=== PATIENT | female | born 1940 | race Caucasian/White ===

== ENCOUNTER 2019-11-10 09:45 | Outpatient (CLI) | payer MEDICARE, BC, SELFPAY ==
--- NOTE | ~2019-11-10 | MM_ITS ---
EXAMINATION: MM screening jeana BI w priscila HISTORY: Screening mammogram TECHNIQUE: Craniocaudal and mediolateral oblique 3-D tomosynthesis images were obtained and synthetic 2-D images were generated. CAD analysis was submitted and interpreted. COMPARISON: 08/10/2018, 08/12/2017, 07/13/2016 bilateral digital screening mammogram examinations BREAST PARENCHYMAL COMPOSITION: There are scattered areas of fibroglandular density. FINDINGS: There is no evidence of suspicious mass, calcification, or architectural distortion to sugg est malignancy in either breast. There has been no suspicious interval change. IMPRESSION: 1. No mammographic evidence of malignancy. 2. Recommend routine screening mammography in one year. BI-RADS Category 1: Negative Reviewed, dictated and finalized at location A.
== END 2019-11-10 09:46 | disposition home or self-care (01) ==
PROVIDERS: PCP Nurse Practitioner Adult Health; Visit Provider Nurse Practitioner Adult Health
DX: Z12.31 Encounter for screening mammogram for malignant neoplasm of breast (principal)
CPT/HCPCS: 77063; 77067

== ENCOUNTER 2021-03-10 08:34 | Outpatient (CLI) | payer MEDICARE, BC, SELFPAY ==
--- NOTE | ~2021-03-10 | MM_ITS ---
EXAMINATION: MM screening jeana BI w priscila HISTORY: Screening mammogram TECHNIQUE: Craniocaudal and mediolateral oblique 3-D tomosynthesis images were obtained and synthetic 2-D images were generated. CAD analysis was submitted and interpreted. COMPARISON: 11/10/2019, 08/10/2018, 07/31/2017 bilateral digital screening mammogram examinations BREAST PARENCHYMAL COMPOSITION: There are scattered areas of fibroglandular density. FINDINGS: There is no evidence of suspicious mass, calcification, or architectural distortion to sugg est malignancy in either breast. There has been no suspicious interval change. IMPRESSION: 1. No mammographic evidence of malignancy. 2. Recommend routine screening mammography in one year. BI-RADS Category 1: Negative Reviewed, dictated and finalized at location A.
== END 2021-03-10 08:35 | disposition home or self-care (01) ==
LOC: ANHIMG 08:38
PROVIDERS: PCP Nurse Practitioner Adult Health; Visit Provider Nurse Practitioner Adult Health
DX: Z12.31 Encounter for screening mammogram for malignant neoplasm of breast (principal)
CPT/HCPCS: 77063; 77067

== ENCOUNTER 2023-02-10 08:00 | Outpatient (CLI) | payer MEDICARE, BC, SELFPAY ==
--- NOTE | 2023-02-10 08:26 | ECG_ITS ---
Measurements Intervals [place] Rate: 79 P: 65 CT: 177 QRS: 93 QRSD: 141 T: -12 QT: 395 QTc: 453 Interpretive Statements SINUS RHYTHM RIGHT BUNDLE BRANCH BLOCK [120+ ms QRS DURATION, UPRIGHT V1, 40+ ms S IN I/aVL/V4/V5/V6] ABNORMAL ECG NO PREVIOUS ECG AVAILABLE FOR COMPARISON Electronically Signed On 02-10-2023 12:05:14 CDT by Beltran Ruggiero M.D.
[2023-02-10 09:31] LABS: Anion Gap 5 mmol/L (8-16); Blood Urea Nitrogen 36 mg/dL (7-17); Calcium 9.3 mg/dL (8.4-10.2); Carbon Dioxide 29 mmol/L (22-30); Chloride 101 mmol/L (98-107); Estimated Glomerular Filt Rate 53; Glucose 106 mg/dL (65-110); Potassium 3.7 mmol/L (3.4-5.0); Sodium 135 mmol/L (137-145)
== END 2023-02-10 08:01 | disposition home or self-care (01) ==
PROVIDERS: PCP Nurse Practitioner Adult Health; Visit Provider Orthopaedic Surgery
DX: Z01.818 Encounter for other preprocedural examination (principal); I45.10 Unspecified right bundle-branch block
CPT/HCPCS: 36415; 80048; 93005

== ENCOUNTER 2024-08-23 10:22 | Emergency (ER) | payer MEDICARE, BC, SELFPAY ==
[2024-08-23] VITALS (38 sets, daily range): BP systolic 130–178; BP diastolic 57–80; PULSE 76–102; RESP 14–32; TEMP 36.7–37.2; O2SAT 88–100
--- NOTE | ~2024-08-23 | CT_ITS ---
EXAMINATION: CT brain wo con DATE: 08/23/2024 14:26 INDICATION: One week of headache TECHNIQUE: Computed tomography (CT) of the head was performed without intravenous contrast. Sagittal and coronal reconstructions were performed. The mA was adjusted according to patient size. Iterative reconstruction technique was employed. The dose-length product was 605.33 mGy-cm. COMPARISON: None FINDINGS: No acute intracranial hemorrhage, acute infarction or abnormal extra axial fluid collection. There is mild scattered white matter hypoattenuation consistent with chronic small vessel ischemic disease. S ymmetric prominence of the sulci consistent with mild age-appropriate diffuse cerebral volume loss. V entricles are normal and symmetric. No mass/mass effect. Small bilateral pleural effusions. The orbit s and paranasal sinuses are normal. Intracranial calcified cerebral atherosclerosis is noted. IMPRESSION: 1. Normal aging brain. No acute intracranial process. Reviewed, dictated and finalized at location B. RN
--- OUTSIDE RECORDS SUMMARY | 2024-08-23 11:40 | XMS_ITS | Continuity of Care Document ---
Author Organization [facility] Address [address] [place] [address] [address] [place] [address] Phone Care Team Providers Care Patient Care Director Name Role Phone Hutchison OD, Jose Daniel Unavailable Unavailable Procedures Procedure Date Eye Exam & Treatment No Script Refraction Eye Exam & Treatment Advance Directives Directive Yes / No Effective Date File Name No Information Encounters Encounter Description Practice Location Reason(s) For Visit Diagnoses Date Provider Providers Copied on Encounter [facility], [address] [place] [address] [address], [place], [place], [id number], tel:[phone] [facility] No Information 1-200 9 Hutchison OD Jose Daniel. [address] , [address], [place], [place], [facility], [place]. tel:[phone] [facility], [address] [place] [address] [address], [place], [place], [id number], tel:[phone] [facility] No Information 4-200 7 Hutchison OD Jose Daniel. [address] , [address], [place], [address], [place]. tel:[phone] Family History Family Member Type Diagnosis Age At Onset No Information Payers Payer name Insurance type Covered republican ID Authoriza tion(s) [place] [id number] BCBS [facility] PPO BL [id number] Social History Type Description Quantity Date Captured Comments Sex Female Smoking Status No Information Chief Complaint And Reason For Visit No Information Reason For Referral Reason For Referral No Information History Of Present Illness Encounter Date Complaint History Of Prese nt Illness No Information Functional Status Date Functional Assessmen t No Information Instructions Date Instruction Additional Infor mation No Information Assessments Type Assessment Date No Information Patient Care Teams Name Effective Dates (start - stop) Status Members No Information
--- OUTSIDE RECORDS SUMMARY | 2024-08-23 11:40 | XMS_ITS | Clinical Summary ---
Author Organization [facility] Address [address] [place] [address] Care Team Providers Care Molded Goods Embossing Press Operator Name Role Phone None, Provider Primary Care Provider Unavaila ble Social History Tobacco Use Types Packs/Day Years Used Date Smoking Tobacco: Never Assessed Comments Unknown Sex and Gender Information Value Date Recorded Sex Assigned at Not on file Legal Sex Female 6:47 PM CDT Gender Identity Not on file Sexual Orientation Not on file Plan of Treatment Health Maintenance Due Date Last Done Comments DTaP, Tdap and Td Vaccines ( 1 - Tdap) 1958 Zoster Vaccines (1 of 2) 1989 Pneumococcal Vaccine: 65+ Ye ars (1 of 1 - PCV) 01/15/2004 RSV Immunization or 60+ Years (1 - 1-dose 75+ series) 2014 COVID-19 Vaccine ( - 2023-2 5 season) 2024 Influenza Adult (#1) 2024 Meningococcal B Vaccine Aged Out No l onger eligible based on patient's age to complete this topic Meningococcal Vaccine Aged Out No rory alicia eligible based on patient's age to complete this topic RSV Immunizations Under 20 Months Aged Out No longer eligible based on patient's age to complete this topic Care Teams Molded Goods Embossing Press Operator Relationship Specialty Start Date End Date None, Provider, PCP - General 04/28/18
--- NOTE | 2024-08-23 13:50 | ECG_ITS ---
Test Date: 2024-08-23 13:52:11 Measurements Intervals [place] Rate: 90 P: 65 [place]: 180 QRS: 101 QRSD: 117 T: 14 QT: 369 QTc: 453 Interpretive Statements SINUS RHYTHM RIGHT AXIS DEVIATION [QRS AXIS > 100] RIGHT BUNDLE BRANCH BLOCK [120+ ms QRS DURATION, UPRIGHT V1, 40+ ms S IN I/aVL/V4/V5/V6] No previous ECG available for comparison Electronically Signed On 08-24-2024 16:08:18 [employer]EL[employer] by Viky Walsh M.D.
--- NOTE | 2024-08-23 14:04 | ED_ITS ---
HPI - Dizziness General Chief Complaint: Dizziness <Katherine Funk APRN - Last Filed: 08/23/24 14:08> Stated Complaint: abnormal EKG, weakness, dizzy <Katherine Funk APRN - Last Filed: 08/23/24 14:08> Time Seen by Provider: 08/23/24 13:35 <Katherine Funk APRN - Last Filed: 08/23/24 14:08> Focused HPI: Patient is 84-year-old female who presents to the ER with a 1 week history headache, low energy increased shortness of breath with exertion, dizziness. She reports she thought she had the flu but ?my test was negative. Patient also endorses abdominal bruising and lower back pain. She denies any chest pain, wheezing, congestion, recent fevers. GENERAL: Well-appearing, well-nourished, and in no acute distress. HEAD: Normocephalic, atraumatic. CHEST: Clear to auscultation. ?No respiratory distress. HEART: Regular rate and rhythm.? NEURO: ?Alert and oriented x3. Patient screened in triage and initial orders placed.? ?Additional care and disposition to be based upon?diagnostic testing and treatment. <Katherine Funk APRN - Last Filed: 08/23/24 14:08> History of Present Illness HPI Narrative: Agree with HPI. <Heri Mahajan MD - Last Filed: 08/23/24 19:47> Related Data Allergies/Adverse Reactions: Allergies Allergy/AdvReac Type Severity Reaction Status Date / Time No Known Allergies Allergy Unverified 01/12/18 09:55 <Katherine Funk APRN - Last Filed: 08/23/24 14:08> Review of Systems 2 Review of Systems: All systems reviewed & are unremarkable except as noted in HPI and below <Heri Mahajan MD - Last Filed: 08/23/24 19:47> Constitutional: Constitutional: Reports no additional constitutional complaints <Heri Mahajan MD - Last Filed: 08/23/24 19:47> Cardiovascular: Cardiovascular: Reports no additional cardiovascular complaints <Heri Mahajan MD - Last Filed: 08/23/24 19:47> Respiratory: Respiratory: Reports no additional respiratory complaints < Heri Mahajan MD - Last Filed: 08/23/24 19:47> Gastrointestinal: Gastrointestinal: Reports no additional gastrointestinal complaints <Heri Mahajan MD - Last Filed: 08/23/24 19:47> Endocrine: Endocrine: Denies excessive sweating, Reports fatigue, Reports polydipsia and Denies polyuria <Heri Mahajan MD - Last Filed: 08/23/24 19:47> Hematologic/Lymphatic: Hematologic/Lymphatic: Denies easy bleeding and Reports easy bruising <Heri Mahajan MD - Last Filed: 08/23/24 19:47> PMFSH Past Medical History Medical History: Medical History (Updated 08/23/24 @ 19:39 by Heri Mahajan MD) Hyperlipidemia Hypertension <Katherine Funk APRN - Last Filed: 08/23/24 14:08> Exam 2 Narrative: GENERAL: Well-appearing, well-nourished, and in no acute distress. HEAD: Normocephalic, atraumatic. ENT: Mucous membranes moist. NECK: Supple. CHEST: Clear to auscultation. No respiratory distress. HEART: Regular rate and rhythm. Normal peripheral pulses. ABDOMEN: Soft, nontender, nondistended. EXTREMITIES: Normal range of motion. No edema. SKIN: Warm, dry, no rash. Finger tip bruise chanel along the upper part of her abdomen. NEURO: Alert and oriented x3. PSYCH: Normal mood and affect. <Heri Mahajan MD - Last Filed: 08/23/24 19:47> Course Course Emergency Course: 175: Dr. Urena with bone marrow transplant team at [facility] accepts the patient for transfer. He would like me to add on a fibrinogen level, a phosphorus level, and a uric acid level. He would like the BMP/phosphorus/uric acid level repeated q.8 hours. He has a also like the patient received hydroxyurea 2 g t.i.d.. We are awaiting a bed for transfer. Patient family where diagnosis and treatment plan. 1937: Called [facility] to update on low fibrinogen, normal phosphorus, and elevated uric aced. Scheduled labs ordered. NATALIYA to Dr. Leone awaiting a bed. 1945: Discussed with Dr. Berry, add allopurinol 300mg daily. Give cryoprecipitate with goal fibrinogen at 100. Patient is on the high priority list at [place]. <Heri Mahajan MD - Last Filed: 08/23/24 19:47> Vital Signs Vital signs: Vital Signs Temperature 98.4 F 08/23/24 10:53 Pulse Rate 98 08/23/24 10:53 Respiratory Rate 18 08/23/24 10:53 Blood Pressure 130/65 08/23/24 10:53 Pulse Oximetry 96 08/23/24 10:53 Oxygen Delivery Room Air 08/23/24 10:53 Temperature 98.9 F 08/23/24 14:10 Pulse Rate 78 08/23/24 19:15 Respiratory Rate 17 08/23/24 19:15 Blood Pressure 142/61 H 08/23/24 19:02 Pulse Oximetry 92 08/23/24 19:15 Oxygen Delivery Room Air 08/23/24 10:53 <Katherine Funk, EMOTIONALLY IMPAIRED TEACHER - Last Filed: 08/23/24 14:08> Vital Signs Temperature 98.4 F 08/23/24 10:53 Pulse Rate 98 08/23/24 10:53 Respiratory Rate 18 08/23/24 10:53 Blood Pressure 130/65 08/23/24 10:53 Pulse Oximetry 96 08/23/24 10:53 Oxygen Delivery Room Air 08/23/24 10:53 Temperature 98.9 F 08/23/24 14:10 Pulse Rate 78 08/23/24 19:15 Respiratory Rate 17 08/23/24 19:15 Blood Pressure 142/61 H 08/23/24 19:02 Pulse Oximetry 92 08/23/24 19:15 Oxygen Delivery Room Air 08/23/24 10:53 <Heri Mahajan MD - Last Filed: 08/23/24 19:47> MDM - Dizziness Lab Data Result diagrams: 08/23/24 14:00 08/23/24 14:00 <Katherine Funk APRN - Last Filed: 08/23/24 14:08> Labs: Lab Results 08/23/24 08/23/24 08/23/24 Range/Units 13:59 14:00 14:00 WBC Cancelled 159.9 H* RBC Cancelled 3.51 L Hgb Cancelled 11.6 L Hct Cancelled 36.3 L MCV Cancelled 103.4 H MCH Cancelled 33.0 MCHC Cancelled 32.0 RDW Cancelled 14.2 Plt Count Cancelled 62 L MPV Cancelled 11.3 H Immature Gran % (Auto) Cancelled Not Reportable Neut % (Auto) Cancelled Not Reportable Lymph % (Auto) Cancelled Not Reportable Norton % (Auto) Cancelled Not Reportable Eos % (Auto) Cancelled Not Reportable Baso % (Auto) Cancelled Not Reportable Lymph # (Auto) Cancelled Not Reportable Norton # (Auto) Cancelled Not Reportable Eos # (Auto) Cancelled Not Reportable Baso # (Auto) Cancelled Not Reportable Abs Immat Gran (auto) Cancelled Not Reportable Absolute Neuts (auto) Cancelled Not Reportable Absolute Nucleated RBC Cancelled Not Reportable Total Counted 100 Neutrophils % (Manual) 12 L (46-73) % Band Neutrophils % 1 (0-6) % Lymphocytes % (Manual) 8.0 L (18-44) % Monocytes % (Manual) 59 H (3-9) % Promyelocytes % (Man) 1 % Nucleated RBC % Cancelled Not Reportable Abs Neuts (Manual) 20.78 H (1.7-7.2) K/mm3 Abs Lymphs (Manual) 12.79 H (1.1-4.5) K/mm3 Abs Monocytes (Manual) 94.34 H (0.1-0.90) K/mm3 Nucleated RBCs 3 % Other Cell Type 19.0 Platelet Estimate Decreased (Adequate) % Immature Plt Fraction Cancelled 13.1 H Hypochromasia 1+ Anisocytosis 1+ Schistocytes None seen PT (11.1-14.7) Seconds INR APTT (22.3-36.8) Seconds Fibrinogen (215-510) mg/dl Sodium 138 (137-145) mmol/L Potassium 5.3 H (3.4-5.0) mmol/L Chloride 102 (98-107) mmol/L Carbon Dioxide 27 (22-30) mmol/L Anion Gap 9 (4-12) mmol/L BUN 25 H D (7-17) mg/dL Creatinine 1.67 H (0.7-1.0) mg/dL Estim Creat Clear Calc 19 ml/min Estimated GFR 29 L (59 - ) Glucose 114 H (65-110) mg/dL Uric Acid 12.6 H (2.5-7.5) mg/dL Calcium 10.9 H (8.4-10.2) mg/dL Phosphorus 3.0 (2.5-4.5) mg/dL Total Bilirubin 0.9 (0.2-1.3) mg/dL AST 101 H (14-36) U/L ALT 88 H (6-35) U/L Alkaline Phosphatase 150 H (38-126) U/L Troponin I 0.043 H* (0.000-0.034) ng/mL NT-Pro-B Natriuret Pep 3050 H Cancelled (19.9-100) pg/mL Total Protein 8.0 (6.3-8.2) g/dL Albumin 4.0 (3.5-5.1) g/dL Influenza A (RT-PCR) Negative (Negative) Influenza B (RT-PCR) Negative (Negative) RSV (RT-PCR) Negative (Negative) SARS-CoV-2 RNA (RT-PCR) Negative (Negative) 08/23/24 Range/Units 16:31 WBC RBC Hgb Hct MCV MCH MCHC RDW Plt Count MPV Immature Gran % (Auto) Neut % (Auto) Lymph % (Auto) Norton % (Auto) Eos % (Auto) Baso % (Auto) Lymph # (Auto) Norton # (Auto) Eos # (Auto) Baso # (Auto) Abs Immat Gran (auto) Absolute Neuts (auto) Absolute Nucleated RBC Total Counted Neutrophils % (Manual) (46-73) % Band Neutrophils % (0-6) % Lymphocytes % (Manual) (18-44) % Monocytes % (Manual) (3-9) % Promyelocytes % (Man) % Nucleated RBC % Abs Neuts (Manual) (1.7-7.2) K/mm3 Abs Lymphs (Manual) (1.1-4.5) K/mm3 Abs Monocytes (Manual) (0.1-0.90) K/mm3 Nucleated RBCs % Other Cell Type Platelet Estimate (Adequate) % Immature Plt Fraction Hypochromasia Anisocytosis Schistocytes PT 22.7 H (11.1-14.7) Seconds INR 2.0 APTT 36.1 (22.3-36.8) Seconds Fibrinogen < 60 L (215-510) mg/dl Sodium (137-145) mmol/L Potassium (3.4-5.0) mmol/L Chloride (98-107) mmol/L Carbon Dioxide (22-30) mmol/L Anion Gap (4-12) mmol/L BUN (7-17) mg/dL Creatinine (0.7-1.0) mg/dL Estim Creat Clear Calc ml/min Estimated GFR (59 - ) Glucose (65-110) mg/dL Uric Acid (2.5-7.5) mg/dL Calcium (8.4-10.2) mg/dL Phosphorus (2.5-4.5) mg/dL Total Bilirubin (0.2-1.3) mg/dL AST (14-36) U/L ALT (6-35) U/L Alkaline Phosphatase (38-126) U/L Troponin I (0.000-0.034) ng/mL NT-Pro-B Natriuret Pep (19.9-100) pg/mL Total Protein (6.3-8.2) g/dL Albumin (3.5-5.1) g/dL Influenza A (RT-PCR) (Negative) Influenza B (RT-PCR) (Negative) RSV (RT-PCR) (Negative) SARS-CoV-2 RNA (RT-PCR) (Negative) <Katherine Funk, EMOTIONALLY IMPAIRED TEACHER - Last Filed: 08/23/24 14:08> Lab Results 08/23/24 08/23/24 08/23/24 Range/Units 13:59 14:00 14:00 WBC Cancelled 159.9 H* RBC Cancelled 3.51 L Hgb Cancelled 11.6 L Hct Cancelled 36.3 L MCV Cancelled 103.4 H MCH Cancelled 33.0 MCHC Cancelled 32.0 RDW Cancelled 14.2 Plt Count Cancelled 62 L MPV Cancelled 11.3 H Immature Gran % (Auto) Cancelled Not Reportable Neut % (Auto) Cancelled Not Reportable Lymph % (Auto) Cancelled Not Reportable Norton % (Auto) Cancelled Not Reportable Eos % (Auto) Cancelled Not Reportable Baso % (Auto) Cancelled Not Reportable Lymph # (Auto) Cancelled Not Reportable Norton # (Auto) Cancelled Not Reportable Eos # (Auto) Cancelled Not Reportable Baso # (Auto) Cancelled Not Reportable Abs Immat Gran (auto) Cancelled Not Reportable Absolute Neuts (auto) Cancelled Not Reportable Absolute Nucleated RBC Cancelled Not Reportable Total Counted 100 Neutrophils % (Manual) 12 L (46-73) % Band Neutrophils % 1 (0-6) % Lymphocytes % (Manual) 8.0 L (18-44) % Monocytes % (Manual) 59 H (3-9) % Promyelocytes % (Man) 1 % Nucleated RBC % Cancelled Not Reportable Abs Neuts (Manual) 20.78 H (1.7-7.2) K/mm3 Abs Lymphs (Manual) 12.79 H (1.1-4.5) K/mm3 Abs Monocytes (Manual) 94.34 H (0.1-0.90) K/mm3 Nucleated RBCs 3 % Other Cell Type 19.0 Platelet Estimate Decreased (Adequate) % Immature Plt Fraction Cancelled 13.1 H Hypochromasia 1+ Anisocytosis 1+ Schistocytes None seen PT (11.1-14.7) Seconds INR APTT (22.3-36.8) Seconds Fibrinogen (215-510) mg/dl Sodium 138 (137-145) mmol/L Potassium 5.3 H (3.4-5.0) mmol/L Chloride 102 (98-107) mmol/L Carbon Dioxide 27 (22-30) mmol/L Anion Gap 9 (4-12) mmol/L BUN 25 H D (7-17) mg/dL Creatinine 1.67 H (0.7-1.0) mg/dL Estim Creat Clear Calc 19 ml/min Estimated GFR 29 L (59 - ) Glucose 114 H (65-110) mg/dL Uric Acid 12.6 H (2.5-7.5) mg/dL Calcium 10.9 H (8.4-10.2) mg/dL Phosphorus 3.0 (2.5-4.5) mg/dL Total Bilirubin 0.9 (0.2-1.3) mg/dL AST 101 H (14-36) U/L ALT 88 H (6-35) U/L Alkaline Phosphatase 150 H (38-126) U/L Troponin I 0.043 H* (0.000-0.034) ng/mL NT-Pro-B Natriuret Pep 3050 H Cancelled (19.9-100) pg/mL Total Protein 8.0 (6.3-8.2) g/dL Albumin 4.0 (3.5-5.1) g/dL Influenza A (RT-PCR) Negative (Negative) Influenza B (RT-PCR) Negative (Negative) RSV (RT-PCR) Negative (Negative) SARS-CoV-2 RNA (RT-PCR) Negative (Negative) 08/23/24 Range/Units 16:31 WBC RBC Hgb Hct MCV MCH MCHC RDW Plt Count MPV Immature Gran % (Auto) Neut % (Auto) Lymph % (Auto) Norton % (Auto) Eos % (Auto) Baso % (Auto) Lymph # (Auto) Norton # (Auto) Eos # (Auto) Baso # (Auto) Abs Immat Gran (auto) Absolute Neuts (auto) Absolute Nucleated RBC Total Counted Neutrophils % (Manual) (46-73) % Band Neutrophils % (0-6) % Lymphocytes % (Manual) (18-44) % Monocytes % (Manual) (3-9) % Promyelocytes % (Man) % Nucleated RBC % Abs Neuts (Manual) (1.7-7.2) K/mm3 Abs Lymphs (Manual) (1.1-4.5) K/mm3 Abs Monocytes (Manual) (0.1-0.90) K/mm3 Nucleated RBCs % Other Cell Type Platelet Estimate (Adequate) % Immature Plt Fraction Hypochromasia Anisocytosis Schistocytes PT 22.7 H (11.1-14.7) Seconds INR 2.0 APTT 36.1 (22.3-36.8) Seconds Fibrinogen < 60 L (215-510) mg/dl Sodium (137-145) mmol/L Potassium (3.4-5.0) mmol/L Chloride (98-107) mmol/L Carbon Dioxide (22-30) mmol/L Anion Gap (4-12) mmol/L BUN (7-17) mg/dL Creatinine (0.7-1.0) mg/dL Estim Creat Clear Calc ml/min Estimated GFR (59 - ) Glucose (65-110) mg/dL Uric Acid (2.5-7.5) mg/dL Calcium (8.4-10.2) mg/dL Phosphorus (2.5-4.5) mg/dL Total Bilirubin (0.2-1.3) mg/dL AST (14-36) U/L ALT (6-35) U/L Alkaline Phosphatase (38-126) U/L Troponin I (0.000-0.034) ng/mL NT-Pro-B Natriuret Pep (19.9-100) pg/mL Total Protein (6.3-8.2) g/dL Albumin (3.5-5.1) g/dL Influenza A (RT-PCR) (Negative) Influenza B (RT-PCR) (Negative) RSV (RT-PCR) (Negative) SARS-CoV-2 RNA (RT-PCR) (Negative) <Heri Mahajan MD - Last Filed: 08/23/24 19:47> Critical Care Time Critical Care Time Critical Care Time: Yes <Heri Mahajan MD - Last Filed: 08/23/24 19:47> Total Critical Care Time: 35 <Heri Mahajan MD - Last Filed: 08/23/24 19:47> Discharge Plan Discharge Clinical Impression: Acute myelocytic leukemia, Hyperkalemia <Katherine Funk APRN - Last Filed: 08/23/24 14:08> Patient Disposition: Acute Care Hospital <Katherine Funk APRN - Last Filed: 08/23/24 14:08> Condition: Serious <Katherine Funk APRN - Last Filed: 08/23/24 14:08> Patient Language: Bengali <Katherine Funk APRN - Last Filed: 08/23/24 14:08> Follow-up/Referrals: PHYSICIAN NOT ON STAFF,NONSTAFF [Non-Staff] - <Katherine Funk APRN - Last Filed: 08/23/24 14:08>
[2024-08-23 14:12] LABS: Hematocrit 36.3 % (37.0-47.0); Hemoglobin 11.6 g/dL (12.0-15.0); Immature Platelet Fraction Pct 13.1 % (0.9-11.2); Mean Corpuscular Volume 103.4 fl (80-100); Mean Platelet Volume 11.3 fl (7.4-10.4); Platelet Count Result 62 k/mm3 (150-375); Red Blood Count 3.51 M/mm3 (4.2-5.4); Red Cell Distribution Width 14.2 % (11.5-14.5)
[2024-08-23 14:19] LABS: Alanine Aminotransferase 88 U/L (6-35); Alkaline Phosphatase 150 U/L (38-126); Anion Gap 9 mmol/L (4-12); Aspartate Amino Transferase 101 U/L (14-36); Bilirubin,Total 0.9 mg/dL (0.2-1.3); Blood Urea Nitrogen 25 mg/dL (7-17); Calcium 10.9 mg/dL (8.4-10.2); Carbon Dioxide 27 mmol/L (22-30); Chloride 102 mmol/L (98-107); Estimated CRCL calculation 19 ml/min; Estimated Glomerular Filt Rate 29; Glucose 114 mg/dL (65-110); Potassium 5.3 mmol/L (3.4-5.0); Sodium 138 mmol/L (137-145)
[2024-08-23 14:32] LABS: NT Pro B Type Natriuretic Pept 3050 pg/mL (19.9-100)
[2024-08-23 14:36] LABS: Troponin I 0.043 ng/mL (0.000-0.034)
[2024-08-23 14:37] LABS: White Blood Count 159.9 K/mm3 (4.5-10.0)
[2024-08-23 14:42] LABS: Influenza A QL RT-PCR Negative (Negative); Influenza B QL RT-PCR Negative (Negative); RSV RNA, RT-PCR Negative (Negative); SARS-CoV-2 RNA PCR Negative (Negative)
[2024-08-23 14:57] LABS: Anisocytosis 1+; Band Neutrophils Percent 1 % (0-6); Lymphocytes Absolute Manual 12.79 K/mm3 (1.1-4.5); Monocytes Absolute Manual 94.34 K/mm3 (0.1-0.90); Monocytes Percent Manual 59 % (3-9); Neutrophils Absolute Manual 20.78 K/mm3 (1.7-7.2); Neutrophils Percent Manual 12 % (46-73); Nucleated Red Blood Cells 3 %; Platelet Estimate Decreased (Adequate); Promyelocytes Percent 1 %; Schistocytes None Seen; Total Cells Counted 100
[2024-08-23 14:58] LABS: Hypochromasia 1+
--- OUTSIDE RECORDS SUMMARY | 2024-08-23 16:30 | XMS_ITS | Clinical Summary ---
Author Organization [facility] Address [address] [place] [address] Care Team Providers Care Principal Data Architect Name Role Phone None, Provider Primary Care [...] age to complete this topic Care Teams Principal Data Architect Relationship Specialty Start Date End Date None, Provider, PCP - General 04/28/18
--- OUTSIDE RECORDS SUMMARY | 2024-08-23 16:30 | XMS_ITS | Continuity of Care Document ---
Author Organization Merged with [facility] Address [address] [place] [address] [address] [place] [address] Phone Care Team Providers Care Spindle Sander Name Role Phone Hutchison OD, Jose Daniel Unavailable Unavailable Procedures Procedure Date Eye Exam & Treatment No Script Refraction Eye Exam & Treatment Advance Directives Directive Yes / No Effective Date File Name No Information Encounters Encounter Description Practice Location Reason(s) For Visit Diagnoses Date Provider Providers Copied on Encounter [facility], [address] [place] [address] [address], [place], [place], [id number], tel:[phone] SEC [facility] No Information 1-200 9 Hutchison OD Jose Daniel. [address] , [address], [place], [place], [facility], [place]. tel:[phone] [facility], [address] [place] [address] [address], [place], [place], [id number], tel:[phone] [facility] No Information 4-200 7 Hutchison OD Jose Daniel. [address] , [address], [place], [address], [place]. tel:[phone] Family History Family Member Type Diagnosis Age At Onset No Information Payers Payer name Insurance type Covered republican ID Authoriza tion(s) [place] [id number] BCBS [facility] PPO [id number] Social History Type Description Quantity Date Captured [...]
[2024-08-23] MEDS: SODIUM CHLORIDE 0.9% IV 1,000 ML 999 ML IV CONT (16:32)
[2024-08-23] MEDS: ACETAMINOPHEN 325 MG TABLET 650 MG PO (16:33)
[2024-08-23 16:53] LABS: Prothrombin Time 22.7 Seconds (11.1-14.7)
[2024-08-23 16:54] LABS: Partial Thromboplastin Time 36.1 Seconds (22.3-36.8)
[2024-08-23 18:07] LABS: Fibrinogen < 60 mg/dl (215-510)
[2024-08-23] MEDS: MORPHINE SULFATE (*CRX) 2 MG/ML INJ IV PUSH (18:30)
[2024-08-23 19:24] LABS: Uric Acid 12.6 mg/dL (2.5-7.5)
[2024-08-23] MEDS: HYDROXYUREA (*CHEMO) 500 MG CAPSULE 2000 MG PO (19:25)
--- NOTE | 2024-08-23 21:17 | PC.NURSE ---
patient hesitant about the cryoprecipitate, MD carlos to bedside to discuss in more detail with patient.
[2024-08-23] MEDS: SODIUM CHLORIDE 0.9% IV 250 ML 25 ML (22:07)
[2024-08-23 22:11] LABS: Anion Gap 10 mmol/L (4-12); Blood Urea Nitrogen 24 mg/dL (7-17); Calcium 10.3 mg/dL (8.4-10.2); Carbon Dioxide 25 mmol/L (22-30); Chloride 102 mmol/L (98-107); Estimated CRCL calculation 21 ml/min; Estimated Glomerular Filt Rate 32; Glucose 132 mg/dL (65-110); Phosphorus 3.2 mg/dL (2.5-4.5); Potassium 4.1 mmol/L (3.4-5.0); Sodium 137 mmol/L (137-145); Uric Acid 11.3 mg/dL (2.5-7.5)
[2024-08-24] VITALS (14 sets, daily range): BP systolic 129–139; BP diastolic 48–53; PULSE 82–88; RESP 22–32; O2SAT 90–96
--- NOTE | 2024-08-24 01:27 | PC.NURSE ---
vrbo 1gm tylenol per edp lipsmeyer
[2024-08-24] MEDS: ACETAMINOPHEN 500 MG TABLET 1000 MG PO (02:03)
--- NOTE | 2024-08-24 02:14 | PC.NURSE ---
agnes carlos ns @ 100ml /hr
[2024-08-24] MEDS: SODIUM CHLORIDE 0.9% IV 1,000 ML 100 ML IV CONT (02:22)
--- NOTE | 2024-08-24 02:59 | PC.NURSE ---
bed [id number] bed 1 [facility] tower call report [phone]
--- NOTE | 2024-08-24 03:27 | PC.NURSE ---
voice mail left for Jeff (spouse) and spoke with daughter abdelrahman to update on pt receiving a bed at [facility].
--- NOTE | 2024-08-24 03:28 | PC.NURSE ---
smitha spouse [phone] daughter gurdeep [phone]
--- NOTE | 2024-08-24 03:47 | PC.NURSE ---
report to [facility].
--- NOTE | 2024-08-24 03:49 | PC.NURSE ---
Debbie adler updated that [facility] has arrived to take pt to [facility]
== END 2024-08-24 03:54 | disposition short-term general hospital (02) ==
PROVIDERS: Registered Nurse; Emergency Provider Emergency Medicine
DX: C92.00 Acute myeloblastic leukemia, not having achieved remission (principal); Z20.822 Contact with and (suspected) exposure to COVID-19; I10 Essential (primary) hypertension; E78.5 Hyperlipidemia, unspecified; E87.5 Hyperkalemia
CPT/HCPCS: 36415; 36430; 70450; 80048; 80053; 83880; 84100; 84484; 84550; 85025; 85055; 85384; 85610; 85730; 86850; 86900; 86901; 87637; 93005; 96361; 96374; 99285; A9270; J2270; J7030; J7050; P9012